=== PATIENT | male | born 1990 | race Caucasian/White ===

== ENCOUNTER 2021-02-15 13:38 | Emergency (ER) | payer OTHER, BC ==
[~2021-02-15] VITALS: Ht 180.3 cm; Wt 104.3 kg
[2021-02-15] MEDS ORDERED: ONE-DAILY MULT1 EAC1 PO (13:51)
[2021-02-15] MEDS ORDERED: GLUCOSAMINE1000 MG PO (13:51)
[2021-02-15] MEDS ORDERED: FLONASE ALLERG9.9 ML NAS (13:51)
== END 2021-02-15 15:17 | disposition home or self-care (01) ==
LOC: ED 13:38
PROC: 0HQGXZZ Repair Left Hand Skin, External Approach (ICD-10-PCS; principal; 2021-02-15)
DX: S61.412A Laceration without foreign body of left hand, initial encounter (principal); Z88.0 Allergy status to penicillin; Z88.8 Allergy status to other drugs, medicaments and biological substances; W26.0XXA Contact with knife, initial encounter
CPT/HCPCS: 12001; 99282-25

== ENCOUNTER 2021-10-27 17:29 | Emergency (ER) | payer OTHER, BC ==
[~2021-10-27] VITALS: Ht 180.3 cm; Wt 104.3 kg
[~2021-10-27 17:29] MED LIST: FLONASE ALLERG9.9 ML NAS; GLUCOSAMINE1000 MG PO; ONE-DAILY MULT1 EAC1 PO
== END 2021-10-27 18:45 | disposition home or self-care (01) ==
LOC: ED 17:29
DX: S71.151A Open bite, right thigh, initial encounter (principal); G47.30 Sleep apnea, unspecified; Z88.0 Allergy status to penicillin; Z88.8 Allergy status to other drugs, medicaments and biological substances; W54.0XXA Bitten by dog, initial encounter
CPT/HCPCS: 99283

== ENCOUNTER 2022-10-15 04:16 | Emergency (ER) | payer BC, OTHER ==
[~2022-10-15] VITALS: Ht 180.3 cm; Wt 107.0 kg
--- OUTSIDE RECORDS SUMMARY | ~2022-10-15 | XMS | Continuity of Care Document ---
Demographics + + + | Address | [address] | | | [place] [address] | + + + | Preferred Language | Unknown | + + + | Marital Status | | + + + | Jehovah'S Witness Affiliation | Unknown | + + + | Race | White | + + + | Ethnic Group | Not or | + + + Author + + + | Author | [facility] | + + + | Organization | [facility] | + + + | Address | [address] | | | [place] [address] | + + + | Phone | | + + + Care Team Providers + + + + | Care Urologist Physician Name | Role | Phone | + + + + Unavailable | Unavailable | + + + + Unavailable | Unavailable | + + + + Allergies and Intolerances + + + + + + | date | description | facility | reaction | severity | + + + + + + | (no date) | NO ALLERGY | [facility] | (no reaction) | (no severity) | | | INFORMATION | [facility] | | | | | AVAILABLE | | | | + + + + + + | (no date) | amoxicillin | [facility] | (no reaction) | (no severity) | | | [facility] | | | + + + + + + Encounters No information. Functional Status No information. Immunizations No information. Medications + + + + | date | description | facility | + + + + | 2021-10-27 00:00 | FLUTICASONE PROPIONATE | [facility] | + + + + | 2021-10-27 00:00 | GLUCOSAMINE SULFATE 2KCL | [facility] | + + + + Problems + + + + | date | description | facility | + + + + | 2021-02-15 00:00 | Laceration of left hand | [facility] | + + + + | 2021-10-27 00:00 | Dog bite of right thigh | [facility] | + + + + Procedures No information. Results/Labs No information. Social History + + + + | date | description | facility | + + + + | 2021-10-27 00:00 | Unknown if ever smoked | [facility] | + + + + Vital Signs + + + +---------+ | date | measurement | value | units | + + + +---------+ | 2021-10-27 00:00 | BMI | 32.1 | kg/m2 | + + + +---------+ | 2021-10-27 00:00 | BP_diastolic | 95 | mmHg | + + + +---------+ | 2021-10-27 00:00 | BP_systolic | 129 | mmHg | + + + +---------+ | 2021-10-27 00:00 | heart_rate | 80 | /min | + + + +---------+ | 2021-10-27 00:00 | height_metric | 180.34 | cm | + + + +---------+ | 2021-10-27 00:00 | height_standard | 71 | in | + + + +---------+ | 2021-10-27 00:00 | o2_saturation | 96 | % | + + + +---------+ | 2021-10-27 00:00 | respiration_rate | 16 | /min | + + + +---------+ | 2021-10-27 00:00 | temperature_metric | 37 | C | | | | | | + + + +---------+ | 2021-10-27 00:00 | | 98.6 | F | | | temperature_standar | | | | | d | | | + + + +---------+ | 2021-10-27 00:00 | weight_metric | 104.33 | kg | + + + +---------+ | 2021-10-27 00:00 | weight_standard | 230 | lb | + + + +---------+ | 2021-10-27 00:00 | weight_standard | 230.01 | lb | + + + +---------+"
--- OUTSIDE RECORDS SUMMARY | ~2022-10-15 | XMS | Continuity of Care Document ---
Demographics + + + | Address | [address] | | | [place] [address] | + + + | Preferred Language | Unknown | + + + | Marital Status | | + + + | Sabianist Affiliation | Unknown | + + + | Race | White | + + + | Ethnic Group | Not or | + + + Author + + + | Author | [facility] | + + + | Organization | [facility] | + + + | Address | [address] | | | [place] [address] | + + + | Phone | | + + + Care Team Providers + + + + | Care Manager Collection Name | Role | Phone | + + + + Unavailable | Unavailable | + + + + Unavailable | Unavailable | + + + + Allergies and Intolerances + + + + + + | date | description | facility | reaction | severity | + + + + + + | (no date) | NO ALLERGY | [facility] | (no reaction) | (no severity) | [...] | 2021-10-27 00:00 | FLUTICASONE PROPIONATE | [facility] | + + + + | 2021-10-27 00:00 | GLUCOSAMINE SULFATE 2KCL | [facility] | + + + + Problems + + + + | date | description | facility | + + + + | 2021-02-15 00:00 | Laceration of left hand | [facility] | + + + + | 2021-10-27 00:00 | Dog bite of right thigh | [facility] | + + + + Procedures No information. Results/Labs No information. Social History + + + + | date | description | facility | + + + + | 2021-10-27 00:00 | Unknown if ever smoked | [facility] | + + + + Vital Signs [...]
[2022-10-15 12:16] VITALS: BP 128/68
--- NOTE | 2022-10-16 06:14 | EKG ---
[facility] [address] [facility] [place], [place] [address] Signed Normal sinus rhythm Normal ECG Confirmed by KAREN LOYOLA MD ([id number]) on 10/16/2022 6:14:35 AM Electronically Signed By: KAREN LOYOLA 10/16/22 0614 PATIENT NAME: JONELLE GODOY Electrocardiogram DATE OF : 89 PHYSICIAN: KAREN LOYOLA REPORT #: [id number] REPORT IS CONFIDENTIAL AND NOT TO BE RELEASED WITHOUT AUTHORIZATION
--- NOTE | 2022-10-16 06:14 | EKG ---
[facility] [address] [facility] [place], [place] [address] Signed Sinus tachycardia Nonspecific ST abnormality Abnormal ECG No previous ECGs available Confirmed by KAREN LOYOLA MD ([id number]) on 10/16/2022 6:14:10 AM Electronically Signed By: KAREN LOYOLA 10/16/22 0614 PATIENT NAME: JONELLE GODOY Electrocardiogram DATE OF : [birth year] PHYSICIAN: KAREN LOYOLA REPORT #: [id number] REPORT IS CONFIDENTIAL AND NOT TO BE RELEASED WITHOUT AUTHORIZATION
--- NOTE | 2022-10-16 06:16 | EKG ---
[facility] [address] [facility] [place], [place] [address] Signed Normal sinus rhythm Normal ECG Confirmed by KAREN LOYOLA MD ([id number]) on 10/16/2022 6:15:58 AM Electronically Signed By: KAREN LOYOLA 10/16/22 0616 PATIENT NAME: JONELLE GODOY Electrocardiogram DATE OF : [birth year] PHYSICIAN: KAREN LOYOLA REPORT #: [id number] REPORT IS CONFIDENTIAL AND NOT TO BE RELEASED WITHOUT AUTHORIZATION
--- NOTE | 2022-10-18 12:44 | EKG ---
[facility] [address] [facility] [place], [place] [address] Signed EKG completed, results pending confirmation PATIENT NAME: JAYNEJONELLE Electrocardiogram DATE OF : [birth year] PHYSICIAN: PRELIMINARY REPORT #: [id number] REPORT IS CONFIDENTIAL AND NOT TO BE RELEASED WITHOUT AUTHORIZATION
== END 2022-10-15 12:18 | disposition short-term general hospital (02) ==
LOC: ED 04:16
DX: R07.81 Pleurodynia (principal); R77.8 Other specified abnormalities of plasma proteins; Z88.0 Allergy status to penicillin; Z88.1 Allergy status to other antibiotic agents; Z20.822 Contact with and (suspected) exposure to COVID-19
CPT/HCPCS: 36415; 71045; 71275; 74174; 80053; 81003; 84484; 85025; 85379; 87502; 93005; 93010; 93306; A9270; C9803; J1650; J1885; J2270; J2405; J7121; Q9967; U0002

== ENCOUNTER 2024-05-30 14:48 | Emergency (ER) | payer OTHER ==
[~2024-05-30] VITALS: Ht 180.3 cm; Wt 106.1 kg
[2024-05-30] MEDS ORDERED: DHEA50 M1 PO (16:54)
[2024-05-30] MEDS ORDERED: TESTOSTERO100 MG/1 M IM (16:54)
[2024-05-30] MEDS ORDERED: SODIUM CHLORIDE 0.9% 1,000 ML IV PRN (17:00)
[2024-05-30] MEDS ORDERED: ondansetron HCL 4 MG/2 ML VIAL IV ONE (17:00)
[2024-05-30 17:05] LABS: BASOPHILS 0.2 % (0-2); HEMATOCRIT 50.4 % (35.0-50.0); LYMPHOCYTES 9.4 % (24-44); MCH 31.3 (27-36); MCHC 35.8 g/dl (30-36); MCV 87.5 fl (81-99); MONOCYTES 10.2 % (0-12); NEUTROPHILS 80.2 % (39-80); PLATELET COUNT 205 K/uL (140-440); RBC 5.76 M/ul (4.3-5.7); RDW 13.5 (10.5-15.0)
[2024-05-30 17:20] LABS: ALBUMIN 4.2 g/dL (3.4-5.0); ALBUMIN/GLOBULIN RATIO 1.05 (1.1-2.4); ANION GAP 11.3 (7-21); BILIRUBIN, TOTAL 0.7 mg/dL (0.2-1.0); BUN/CREATININE RATIO 12.96 (6.0-28.6); CALCIUM 9.2 mg/dL (8.5-10.1); CORONAVIRUS COVID-19 AG NEGATIVE (NEGATIVE); CREATININE, SERUM 1.08 mg/dL (0.70-1.30); INFLUENZA A AG NEGATIVE (NEGATIVE); INFLUENZA B AG NEGATIVE (NEGATIVE); MAGNESIUM 1.9 mg/dL (1.8-2.4); POTASSIUM 4.3 mmol/L (3.5-5.1); PROTEIN, TOTAL 8.2 g/dL (6.4-8.2)
[2024-05-30] MEDS ORDERED: METOCLOPRAMIDE HCL 10 MG/2 ML SDV IV ONE (17:30)
[2024-05-30] MEDS ORDERED: KETOROLAC TROMETHAMINE 15 MG/ML VIAL IV ONE (17:30)
[2024-05-30] MEDS ORDERED: diphenhydrAMINE HCL 50 MG/ML VIAL IV ONE (17:30)
[2024-05-30] MEDS ORDERED: DEXAMETHASONE SOD PHOS 10 MG/ML VIAL IV ONE (17:30)
[2024-05-30] MEDS ORDERED: COMPAZINE25 MG PR (19:00)
[2024-05-30] MEDS ORDERED: ONDANSETRON ODT8 MG PO (19:00)
[2024-05-30 19:05] VITALS: BP 130/79
== END 2024-05-30 19:05 | disposition home or self-care (01) ==
LOC: ED 14:48
PROVIDERS: Emergency Medicine
DX: R51.9 Headache, unspecified (principal); R11.2 Nausea with vomiting, unspecified; G47.30 Sleep apnea, unspecified; Z88.0 Allergy status to penicillin; Z88.1 Allergy status to other antibiotic agents; Z79.890 Hormone replacement therapy; Z79.899 Other long term (current) drug therapy; E03.9 Hypothyroidism, unspecified
CPT/HCPCS: 36415; 80053; 83735; 85025; 96361; 96374; 96375; 99284-25; J1100; J1200; J1885; J2405; J2765; J7030

== ENCOUNTER 2024-09-16 14:30 | Emergency (ER) | payer OTHER ==
[~2024-09-16] VITALS: Ht 180.3 cm; Wt 114.0 kg
[~2024-09-16 14:30] MED LIST changes: +COMPAZINE25 MG PR; +DHEA50 M1 PO; +ONDANSETRON ODT8 MG PO; +TESTOSTERO100 MG/1 M IM
[2024-09-16 19:29] VITALS: BP 127/75
== END 2024-09-16 19:29 | disposition home or self-care (01) ==
LOC: ED 14:30
DX: Z77.21 Contact with and (suspected) exposure to potentially hazardous body fluids (principal); Z88.0 Allergy status to penicillin; Z88.1 Allergy status to other antibiotic agents; Z79.899 Other long term (current) drug therapy
CPT/HCPCS: 99282